=== PATIENT | female | born 1970 | race Caucasian/White ===

== ENCOUNTER 2019-06-10 07:28 | Day surgery (SDC) | payer OTHER ==
[2019-06-10] MEDS ORDERED: LIDOCAINE 2% (SDV) 5 ML INJ (08:36)
[2019-06-10] MEDS ORDERED: PROPOFOL 60 ML (08:36)
[2019-06-10] MEDS ORDERED: ONDANSETRON 4 MG INJ IV (09:00)
== END 2019-06-10 14:50 | disposition home or self-care (01) ==
LOC: GIL 07:28
DX: Z12.11 Encounter for screening for malignant neoplasm of colon (principal); K29.30 Chronic superficial gastritis without bleeding; K64.8 Other hemorrhoids; I10 Essential (primary) hypertension; E11.9 Type 2 diabetes mellitus without complications; Z79.84 Long term (current) use of oral hypoglycemic drugs
CPT/HCPCS: 43239; 82962; 84703; 88305; 88312